=== PATIENT | female | born 1940 | race Caucasian/White ===

== ENCOUNTER 2020-04-22 12:43 | Outpatient (CLI) | payer OTHER, MEDICARE | END 2020-04-22 12:44 | disposition home or self-care (01) | LOC: LAB.S 12:43 | PROVIDERS: ATTEND Internal Medicine Clinical Cardiac Electrophysiology | DX: Z79.01 Long term (current) use of anticoagulants (principal) | CPT/HCPCS: 85610 ==

== ENCOUNTER 2020-04-26 12:57 | Outpatient (CLI) | payer OTHER, MEDICARE | END 2020-04-26 12:58 | disposition home or self-care (01) | LOC: LAB.S 12:57 | PROVIDERS: ATTEND Internal Medicine Clinical Cardiac Electrophysiology | DX: Z79.01 Long term (current) use of anticoagulants (principal) | CPT/HCPCS: 85610 ==

== ENCOUNTER 2020-04-29 11:27 | Outpatient (CLI) | payer OTHER, MEDICARE | END 2020-04-29 11:28 | disposition home or self-care (01) | LOC: LAB.S 11:27 | PROVIDERS: ATTEND Internal Medicine Clinical Cardiac Electrophysiology | DX: Z79.01 Long term (current) use of anticoagulants (principal) | CPT/HCPCS: 85610 ==

== ENCOUNTER 2020-05-06 11:32 | Outpatient (CLI) | payer MEDICARE | END 2020-05-06 11:33 | disposition home or self-care (01) | LOC: LAB.S 11:32 | PROVIDERS: ATTEND Internal Medicine Clinical Cardiac Electrophysiology | DX: Z79.01 Long term (current) use of anticoagulants (principal) | CPT/HCPCS: 85610 ==

== ENCOUNTER 2020-05-10 11:50 | Outpatient (CLI) | payer MEDICARE | END 2020-05-10 11:51 | disposition home or self-care (01) | LOC: LAB.S 11:50 | PROVIDERS: ATTEND Internal Medicine Clinical Cardiac Electrophysiology | DX: Z79.01 Long term (current) use of anticoagulants (principal) | CPT/HCPCS: 85610 ==

== ENCOUNTER 2021-02-28 11:50 | Outpatient (CLI) | payer MEDICARE ==
--- NOTE | 2021-02-28 16:34 | XRAY Report ---
PROCEDURE: Toe(s) LT INDICATIONS: CONTUSION TO LEFT LESSER TOE TECHNIQUE: 3 views of the left second toe(s) acquired. COMPARISON: None FINDINGS: Bones: No fractures or dislocations. No suspicious bony lesions. Midfoot osteoarthritis. Soft tissues: No suspicious soft tissue densities. IMPRESSION: No fracture. No acute osseous lesion. If there persistent symptoms or continued clinical concern for pathology, then repeat plain film radiographs (7-10 days) or advanced imaging (CT, MR, bone scan) chasity uld be considered for further evaluation. Reviewed by: Lubna Brown MD, PhD on 02/28/2021 4:32 PM PDT Approved by: Lubna Brown MD, PhD on 02/28/2021 4:32 PM PDT Station ID: [id number]
== END 2021-02-28 23:59 | disposition home or self-care (01) ==
LOC: DI.S 11:50
PROVIDERS: ATTEND Emergency Medicine
DX: S90.122A Contusion of left lesser toe(s) without damage to nail, initial encounter (principal); M19.072 Primary osteoarthritis, left ankle and foot
CPT/HCPCS: 73660